=== PATIENT | female | born 1955 | race African-American/Black ===

== ENCOUNTER 2018-04-22 04:30 | Emergency (ER) | payer MEDICARE, BC ==
[2018-04-22] MEDS: KETOROLAC 30 MG INJ IV (05:01)
[2018-04-22] MEDS: ONDANSETRON 4 MG INJ IV (05:01)
[2018-04-22] MEDS: HYDROmorphONE 1 MG/ML SYG IV (05:02)
== END 2018-04-22 05:45 | disposition home or self-care (01) ==
LOC: E/R 04:30
DX: S29.011A Strain of muscle and tendon of front wall of thorax, initial encounter (principal); M77.9 Enthesopathy, unspecified; R07.9 Chest pain, unspecified; X50.3XXA Overexertion from repetitive movements, initial encounter; Y92.9 Unspecified place or not applicable
CPT/HCPCS: 71045; 73030-RT; 93005; 96374; 96375; 99284-25

== ENCOUNTER 2018-04-23 01:26 | Inpatient (IN) | payer MEDICARE, BC ==
[2018-04-23] MEDS: HYDROmorphONE 1 MG/ML SYG IV (02:10)
[2018-04-23] MEDS: SOD CHLORIDE 0.9% 1,000 ML IV (02:10)
[2018-04-23] MEDS: ONDANSETRON 4 MG INJ IV (02:10)
[2018-04-23] MEDS: HYDROmorphONE 0.5 MG/0.5 ML SYG IV ×3 (02:23→05:34)
[2018-04-23 02:25] LABS: ADD MAN DIFF? NO
[2018-04-23 02:27] LABS: BASOPHILS % 0.3 % (0.0-2.0); EOSINOPHILS % 0.3 % (0.0-7.0); HEMATOCRIT 30.5 % (37.0-47.0); HEMOGLOBIN 9.7 g/dl (12.0-16.0); LYMPHOCYTES # 1.2 10^3/ul (0.8-2.9); LYMPHOCYTES % 12.4 % (15.0-51.0); MEAN CORPUSCULAR HEMOGLOBIN 28.4 pg (29.0-33.0); MEAN CORPUSCULAR HGB CONC 31.8 g/dl (32.0-37.0); MEAN CORPUSCULAR VOLUME 89.4 fl (82.0-101.0); MEAN PLATELET VOLUME 10.6 fl (7.4-10.4); MONOCYTE # 0.9 10^3/ul (0.3-0.9); MONOCYTES % 9.3 % (0.0-11.0); NEUTROPHIL # 7.7 10^3/ul (1.6-7.5); NEUTROPHILS % 77.1 % (39.0-77.0); PLATELET COUNT 299 10^3/UL (140-415); RED BLOOD COUNT 3.41 10^6/ul (4.20-5.40); RED CELL DISTRIBUTION WIDTH 14.2 % (11.5-14.5)
[2018-04-23 02:43] LABS: ANION GAP 8 (5-13); BLOOD UREA NITROGEN 22 mg/dl (7-20); CALCIUM 8.1 mg/dl (8.4-10.2); CARBON DIOXIDE 26 mmol/L (21-31); CHLORIDE 100 mmol/L (97-110); CREATINE KINASE 261 IU/L (23-200); CREATININE 1.63 mg/dl (0.44-1.00); Estimated GFR 39 mL/min (>60); GLUCOSE 108 mg/dl (70-220); POTASSIUM 4.2 mmol/L (3.5-5.1); SODIUM 134 mmol/L (135-144)
[2018-04-23 02:45] LABS: INR 3.48; PROTIME 36.1 Sec (11.9-14.9); PT RATIO 2.8
[2018-04-23 02:47] LABS: PARTIAL THROMBOPLASTIN TIME 71.1 Sec (23.0-35.0)
[2018-04-23] MEDS: PHYTONADIONE 10 MG in DEXTROSE 5% 50 ML IVPB (03:18)
[2018-04-23] MEDS ORDERED: ACETAMINOPHEN 325 MG TAB PO (03:30)
[2018-04-23] MEDS ORDERED: ONDANSETRON 4 MG INJ IV ×2 (03:30→05:00)
[2018-04-23] MEDS: morphine 2 MG INJ IV (04:51)
[2018-04-23] MEDS: DEXTROSE 5%-0.45% NACL 1,000 ML IV ×2 (04:52→14:34)
[2018-04-23] MEDS ORDERED: ALBUTEROL/IPRATROPIUM (NEB) 3 ML AMP HHN (05:00)
[2018-04-23] MEDS ORDERED: NACL 0.9% 3 ML SYG IV (05:00)
[2018-04-23] MEDS: HYDROmorphONE 2 MG/ML SYG IV ×5 (06:10→21:54)
[2018-04-23 08:30] LABS: TYPE AND SCREEN 1 1
[2018-04-23] MEDS: FAMOTIDINE 20 MG INJ IV (12:59)
[2018-04-23] MEDS: DIAZEPAM 5 MG TAB PO (20:56)
[2018-04-24] MEDS: HYDROmorphONE 2 MG/ML SYG IV ×5 (02:15→20:50)
[2018-04-24 05:14] LABS: ADD MAN DIFF? NO
[2018-04-24 05:23] LABS: BASOPHILS % 0.3 % (0.0-2.0); EOSINOPHILS % 0.4 % (0.0-7.0); HEMATOCRIT 23.7 % (37.0-47.0); HEMOGLOBIN 7.7 g/dl (12.0-16.0); LYMPHOCYTES # 1.3 10^3/ul (0.8-2.9); LYMPHOCYTES % 14.3 % (15.0-51.0); MEAN CORPUSCULAR HEMOGLOBIN 29.1 pg (29.0-33.0); MEAN CORPUSCULAR HGB CONC 32.5 g/dl (32.0-37.0); MEAN CORPUSCULAR VOLUME 89.4 fl (82.0-101.0); MEAN PLATELET VOLUME 10.7 fl (7.4-10.4); MONOCYTES % 10.9 % (0.0-11.0); NEUTROPHIL # 6.8 10^3/ul (1.6-7.5); NEUTROPHILS % 73.7 % (39.0-77.0); PLATELET COUNT 272 10^3/UL (140-415); RED BLOOD COUNT 2.65 10^6/ul (4.20-5.40); RED CELL DISTRIBUTION WIDTH 14.3 % (11.5-14.5)
[2018-04-24 05:23] LABS: WHITE BLOOD COUNT 9.2 10^3/ul (4.8-10.8)
[2018-04-24 05:33] LABS: HEMOGLOBIN A1C 5.7 % (0-5.9)
[2018-04-24 05:41] LABS: ALANINE AMINOTRANSFERASE 24 IU/L (13-69); ALBUMIN 2.5 g/dl (3.3-4.9); ALBUMIN/GLOBULIN RATIO 0.78; ALKALINE PHOSPHATASE 144 IU/L (42-121); ANION GAP 9 (5-13); ASPARTATE AMINO TRANSFERASE 39 IU/L (15-46); BILIRUBIN,INDIRECT 0.4 mg/dl (0-1.1); BILIRUBIN,TOTAL 0.4 mg/dl (0.2-1.3); BLOOD UREA NITROGEN 19 mg/dl (7-20); CALCIUM 8.1 mg/dl (8.4-10.2); CARBON DIOXIDE 26 mmol/L (21-31); CHLORIDE 97 mmol/L (97-110); CREATININE 1.51 mg/dl (0.44-1.00); Estimated GFR 42 mL/min (>60); GLUCOSE 91 mg/dl (70-220); MAGNESIUM 2.1 mg/dl (1.7-2.5); PHOSPHORUS 3.8 mg/dl (2.5-4.9); POTASSIUM 3.8 mmol/L (3.5-5.1); SODIUM 132 mmol/L (135-144); TOTAL PROTEIN 5.7 g/dl (6.1-8.1)
[2018-04-24 05:43] LABS: INR 1.17; PROTIME 15.1 Sec (11.9-14.9); PT RATIO 1.2
[2018-04-24] MEDS: FAMOTIDINE 20 MG INJ IV (09:34)
[2018-04-24] MEDS: predniSONE 5 MG TAB PO (12:33)
[2018-04-24] MEDS: IBUPROFEN 800 MG TAB PO (15:56)
[2018-04-24] MEDS: metFORMIN 500 MG TAB PO (18:32)
[2018-04-25] MEDS: HYDROmorphONE 2 MG/ML SYG IV ×6 (00:01→22:26)
[2018-04-25 06:29] LABS: ADD MAN DIFF? NO
[2018-04-25 06:32] LABS: EOSINOPHILS # 0.1 10^3/ul (0.0-0.5); EOSINOPHILS % 0.7 % (0.0-7.0); LYMPHOCYTES # 1.1 10^3/ul (0.8-2.9); LYMPHOCYTES % 15.1 % (15.0-51.0); MEAN CORPUSCULAR HEMOGLOBIN 28.9 pg (29.0-33.0); MEAN CORPUSCULAR HGB CONC 31.8 g/dl (32.0-37.0); MEAN CORPUSCULAR VOLUME 90.9 fl (82.0-101.0); MEAN PLATELET VOLUME 10.8 fl (7.4-10.4); MONOCYTE # 0.7 10^3/ul (0.3-0.9); MONOCYTES % 9.3 % (0.0-11.0); NEUTROPHIL # 5.4 10^3/ul (1.6-7.5); NEUTROPHILS % 74.4 % (39.0-77.0); PLATELET COUNT 240 10^3/UL (140-415); RED BLOOD COUNT 2.42 10^6/ul (4.20-5.40); RED CELL DISTRIBUTION WIDTH 14.2 % (11.5-14.5)
[2018-04-25 06:32] LABS: WHITE BLOOD COUNT 7.3 10^3/ul (4.8-10.8)
[2018-04-25 07:16] LABS: ANION GAP 6 (5-13); BLOOD UREA NITROGEN 24 mg/dl (7-20); CALCIUM 8.2 mg/dl (8.4-10.2); CARBON DIOXIDE 30 mmol/L (21-31); CHLORIDE 101 mmol/L (97-110); CREATININE 1.36 mg/dl (0.44-1.00); Estimated GFR 48 mL/min (>60); GLUCOSE 84 mg/dl (70-220); SODIUM 137 mmol/L (135-144)
[2018-04-25] MEDS: IBUPROFEN 800 MG TAB PO (07:57)
[2018-04-25] MEDS: FAMOTIDINE 20 MG INJ IV (07:58)
[2018-04-25] MEDS: metFORMIN 500 MG TAB PO ×2 (07:58→18:09)
[2018-04-25] MEDS: predniSONE 5 MG TAB PO (07:58)
[2018-04-26] MEDS: HYDROmorphONE 2 MG/ML SYG IV ×5 (02:32→23:27)
[2018-04-26 05:16] LABS: ADD MAN DIFF? NO
[2018-04-26 05:25] LABS: ABNORMAL IP MESSAGE 1; BASOPHILS % 0.3 % (0.0-2.0); EOSINOPHILS # 0.1 10^3/ul (0.0-0.5); EOSINOPHILS % 1.6 % (0.0-7.0); HEMATOCRIT 21.5 % (37.0-47.0); LYMPHOCYTES # 1.4 10^3/ul (0.8-2.9); LYMPHOCYTES % 21.7 % (15.0-51.0); MEAN CORPUSCULAR HEMOGLOBIN 28.5 pg (29.0-33.0); MEAN CORPUSCULAR HGB CONC 31.2 g/dl (32.0-37.0); MEAN CORPUSCULAR VOLUME 91.5 fl (82.0-101.0); MEAN PLATELET VOLUME 10.4 fl (7.4-10.4); MONOCYTE # 0.6 10^3/ul (0.3-0.9); MONOCYTES % 9.6 % (0.0-11.0); NEUTROPHIL # 4.1 10^3/ul (1.6-7.5); NEUTROPHILS % 65.8 % (39.0-77.0); PLATELET COUNT 265 10^3/UL (140-415); RED BLOOD COUNT 2.35 10^6/ul (4.20-5.40); RED CELL DISTRIBUTION WIDTH 14.2 % (11.5-14.5)
[2018-04-26 05:25] LABS: WHITE BLOOD COUNT 6.3 10^3/ul (4.8-10.8)
[2018-04-26 05:37] LABS: HEMOGLOBIN 6.7 g/dl (12.0-16.0); POSITIVE DIFF @See below
[2018-04-26 05:50] LABS: ANION GAP 6 (5-13); BLOOD UREA NITROGEN 19 mg/dl (7-20); CARBON DIOXIDE 29 mmol/L (21-31); CHLORIDE 104 mmol/L (97-110); CREATININE 1.06 mg/dl (0.44-1.00); Estimated GFR > 60 mL/min (>60); GLUCOSE 83 mg/dl (70-220); MAGNESIUM 2.3 mg/dl (1.7-2.5); POTASSIUM 3.6 mmol/L (3.5-5.1); SODIUM 139 mmol/L (135-144)
[2018-04-26 07:30] LABS: BURR CELLS 1+ (0-0); EOSINOPHILS % (M) 1 % (0-7); GIANT THROMBO% (M) 2 % (0-0); LYMPHOCYTES #M 1.5 10^3/ul (0.8-2.9); LYMPHOCYTES % (M) 25 % (15-51); MONOCYTE #M 0.6 10^3/ul (0.3-0.9); MONOCYTES % (M) 10 % (0-11); MYELOCYTES % (M) 1 % (0-0); PLATELET ESTIMATE NORMAL; PLATELET MORPHOLOGY COMMENT @See below; POIKILOCYTOSIS 1+ (0-0); POLYCHROMASIA 1+ (0-0); SEGMENTED NEUTROPHILS (M) % 63 % (39-77)
[2018-04-26] MEDS: HYDROCODONE/APAP (5/325) TAB PO ×4 (07:41→22:46)
[2018-04-26] MEDS: IBUPROFEN 800 MG TAB PO (09:00)
[2018-04-26] MEDS: FAMOTIDINE 20 MG INJ IV (09:01)
[2018-04-26] MEDS: predniSONE 5 MG TAB PO (09:01)
[2018-04-26] MEDS: metFORMIN 500 MG TAB PO ×2 (09:46→17:29)
[2018-04-26 10:39] LABS: IMMEDIATE SPIN CROSSMATCH 1 2
[2018-04-26] MEDS: HYDROmorphONE 2 MG TAB PO (16:13)
[2018-04-27] MEDS: HYDROmorphONE 2 MG/ML SYG IV ×5 (06:43→23:02)
[2018-04-27] MEDS: HYDROCODONE/APAP (5/325) TAB PO ×3 (09:44→21:27)
[2018-04-27] MEDS: SENNA TAB PO ×2 (09:46→21:27)
[2018-04-27] MEDS: FAMOTIDINE 20 MG INJ IV (09:46)
[2018-04-27] MEDS: predniSONE 5 MG TAB PO (09:58)
[2018-04-27] MEDS: metFORMIN 500 MG TAB PO ×2 (09:58→18:51)
[2018-04-27 16:11] LABS: ADD MAN DIFF? NO
[2018-04-27 16:12] LABS: BASOPHILS % 0.3 % (0.0-2.0); EOSINOPHILS # 0.1 10^3/ul (0.0-0.5); EOSINOPHILS % 0.5 % (0.0-7.0); HEMOGLOBIN 9.5 g/dl (12.0-16.0); LYMPHOCYTES # 0.7 10^3/ul (0.8-2.9); LYMPHOCYTES % 7.6 % (15.0-51.0); MEAN CORPUSCULAR HEMOGLOBIN 28.7 pg (29.0-33.0); MEAN CORPUSCULAR HGB CONC 31.7 g/dl (32.0-37.0); MEAN CORPUSCULAR VOLUME 90.6 fl (82.0-101.0); MEAN PLATELET VOLUME 9.7 fl (7.4-10.4); MONOCYTE # 0.5 10^3/ul (0.3-0.9); MONOCYTES % 4.9 % (0.0-11.0); NEUTROPHILS % 85.8 % (39.0-77.0); PLATELET COUNT 328 10^3/UL (140-415); RED BLOOD COUNT 3.31 10^6/ul (4.20-5.40); RED CELL DISTRIBUTION WIDTH 14.3 % (11.5-14.5)
[2018-04-27 16:12] LABS: WHITE BLOOD COUNT 9.3 10^3/ul (4.8-10.8)
[2018-04-27 20:50] LABS: ADD UMIC YES; UR ASCORBIC ACID NEGATIVE (NEGATIVE); UR BACTERIA FEW /HPF (NONE SEEN); UR BILIRUBIN (Dip) NEGATIVE (NEGATIVE); UR BLOOD (Dip) 1+ mg/dL (NEGATIVE); UR CLARITY CLEAR (CLEAR); UR COLOR YELLOW (YELLOW); UR GLUCOSE (Dip) NEGATIVE (NEGATIVE); UR KETONES (Dip) NEGATIVE (NEGATIVE); UR LEUKOCYTE ESTERASE (Dip) 3+ Leu/ul (NEGATIVE); UR NITRITE (Dip) NEGATIVE (NEGATIVE); UR RBC 3 /HPF (0-5); UR TOTAL PROTEIN (Dip) NEGATIVE (NEGATIVE); UR UROBILINOGEN (Dip) NEGATIVE (NEGATIVE); UR WBC 35 /HPF (0-5)
[2018-04-27 20:52] LABS: OCCULT BLOOD STOOL NEGATIVE (NEGATIVE)
[2018-04-28] MEDS: HYDROCODONE/APAP (5/325) TAB PO ×3 (05:12→14:43)
[2018-04-28] MEDS: HYDROmorphONE 2 MG/ML SYG IV ×2 (06:35→12:02)
[2018-04-28] MEDS: SENNA TAB PO (09:23)
[2018-04-28] MEDS: predniSONE 5 MG TAB PO (09:23)
[2018-04-28] MEDS: FAMOTIDINE 20 MG INJ IV (09:23)
[2018-04-28] MEDS: metFORMIN 500 MG TAB PO (09:24)
[2018-04-28] MEDS: FLUCONAZOLE 150 MG TAB PO (11:59)
== END 2018-04-28 16:00 | disposition home health service (06) | DRG 815 ==
LOC: E/R 01:26 → MS1 03:03
PROVIDERS: Internal Medicine
PROC: 30233K1 Transfusion of Nonautologous Frozen Plasma into Peripheral Vein, Percutaneous Approach (ICD-10-PCS; principal; 2018-04-23)
PROC: 30233N1 Transfusion of Nonautologous Red Blood Cells into Peripheral Vein, Percutaneous Approach (ICD-10-PCS; 2018-04-23)
DX: D68.62 Lupus anticoagulant syndrome (principal); M25.011 Hemarthrosis, right shoulder; N17.9 Acute kidney failure, unspecified; D62 Acute posthemorrhagic anemia; D68.61 Antiphospholipid syndrome; S40.021A Contusion of right upper arm, initial encounter; S40.011A Contusion of right shoulder, initial encounter; S46.111A Strain of muscle, fascia and tendon of long head of biceps, right arm, initial encounter; I12.9 Hypertensive chronic kidney disease with stage 1 through stage 4 chronic kidney disease, or unspecified chronic kidney disease; N18.9 Chronic kidney disease, unspecified; Z79.02 Long term (current) use of antithrombotics/antiplatelets; W19.XXXA Unspecified fall, initial encounter; E11.9 Type 2 diabetes mellitus without complications
CPT/HCPCS: 36415; 36430; 73200; 73218-TC; 73221; 73700; 80048; 80053; 81001; 82270; 82550; 82962; 83036; 83605; 83735; 84100; 85025; 85610; 85730; 86850; 86900; 86901; 86920; 87040; 87086; 96374; 96375; 96376; 97162; 99291-25